=== PATIENT | male | born 1950 | race Hispanic/Latino ===

== ENCOUNTER 2020-11-07 12:04 | Inpatient (IN) | payer OTHER ==
[~2020-11-07] VITALS: Ht 172.7 cm; Wt 104.0 kg
[2020-11-07] MEDS ORDERED: 0.9%NACL 1000ML 1,000 ML IV ONE (12:25)
[2020-11-07] MEDS ORDERED: ACETAMINOPHEN 500 MG TABLET ONE (12:26)
[2020-11-07 12:56] LABS: BASOPHILS % (AUTO) 0.2 % (0.0-5.0); LYMPHOCYTES % (AUTO) 12.7 % (21.0-51.0); MEAN CORPUSCULAR HEMOGLOBIN 31.9 pg (27.0-33.0); MEAN CORPUSCULAR HGB CONC 35.3 g/dL (32.0-36.0); MEAN CORPUSCULAR VOLUME 90.5 fL (79-99); MONOCYTES % (AUTO) 6.9 % (3.0-13.0); NEUTROPHILS % (AUTO) 79.5 % (40.0-77.0); PLATELET COUNT (AUTO) 213 K/uL (130-400); RED BLOOD CELL COUNT(AUTO) 4.42 MIL/uL (4.50-6.20); RED CELL DISTRIBUTION WIDTH 12.8 % (11.0-15.5); WHITE BLOOD COUNT (AUTO) 9.6 K/uL (4.8-10.8)
[2020-11-07 13:00] LABS: ABG BASE EXCESS -3.5 mmol/L (-2.0-3.0); ABG HCO3 18.7 mmol/L (21.0-28.0); ABG OXYGEN SATURATION 93.5 % (95.0-99.0); ABG PCO2 27 mmHg (35-48)
[2020-11-07 13:07] LABS: INR 1.12 (0.85-1.15); PROTHROMBIN TIME 11.9 SEC (9.6-11.6)
[2020-11-07 13:10] LABS: CREATININE 1.2 mg/dL (0.5-1.5); POTASSIUM 3.4 mmol/L (3.5-5.1)
[2020-11-07] MEDS ORDERED: DEXAMETHASONE SOD PHOSPHATE 10MG/ML 1ML VIAL ONE (13:14)
[2020-11-07 13:15] LABS: B-TYPE NATRIURETIC PEPTIDE 579 pg/mL (0-100)
[2020-11-07 13:15] LABS: ALBUMIN 2.3 g/dL (3.5-5.0); BILIRUBIN,TOTAL 0.7 mg/dL (0.2-1.0)
[2020-11-07] MEDS ORDERED: AZITHROMYCIN 250 MG TABLET PO ONE (13:15)
[2020-11-07] MEDS ORDERED: ASPIRIN 325 MG TABLET ONE (13:15)
[2020-11-07] MEDS ORDERED: CEFTRIAXONE 1G VIAL ONE (13:15)
[2020-11-07] MEDS ORDERED: DILTIAZEM 25MG INJ IVP ONE (13:16)
[2020-11-07] MEDS ORDERED: 0.9%NACL 100ML 100 ML IV ONE (13:33)
[2020-11-07] MEDS ORDERED: DILTIAZEM 50MG VIAL IV ONE (13:35)
[2020-11-07] MEDS ORDERED: INSULIN HUMULIN 70/30 100 UNIT/ML 3ML SQ ONE (13:35)
[2020-11-07] MEDS ORDERED: ALBUTEROL INHALER 90MCG/INH IH ONE (14:21)
[2020-11-07] MEDS ORDERED: ONDANSETRON 4MG INJ IV PRN (16:15)
[2020-11-07] MEDS ORDERED: MAG/ALUM/SIMETH 30 ML UDCUP PO PRN (16:15)
[2020-11-07] MEDS ORDERED: ZOLPIDEM TARTRATE 5 MG TAB PO PRN (16:15)
[2020-11-07] MEDS ORDERED: DIPHENHYDRAMINE HCL 25 MG CAPSULE PO PRN (16:15)
[2020-11-07] MEDS ORDERED: METOPROLOL TARTRATE 1 MG/ML 5ML VIAL IV PRN (16:15)
[2020-11-07] MEDS ORDERED: NITROGLYCERIN 0.4 MG SL TAB SL PRN (16:15)
[2020-11-07] MEDS ORDERED: POTASSIUM CHLORIDE 20MEQ/100ML 100 ML IV PRN (16:15)
[2020-11-07] MEDS ORDERED: DiphenhydrAMINE HCL 50 MG/ML VIAL IV PRN (16:15)
[2020-11-07] MEDS ORDERED: DOXYCYCLINE 100MG+NS 250ML IV SCH (16:15)
[2020-11-07] MEDS ORDERED: HYDRALAZINE 20MG/ML VIAL IV PRN (16:15)
[2020-11-07] MEDS ORDERED: DILTIAZEM 25MG INJ IVP PRN (16:15)
[2020-11-07] MEDS ORDERED: ACETAMINOPHEN 325 MG TAB PO PRN ×2 (16:15)
[2020-11-07] MEDS ORDERED: MORPHINE 2 MG SYG IV PRN (16:15)
[2020-11-07] MEDS: DEXAMETHASONE SOD PHOSPHATE 4 MG/ML 1ML VIAL IVP SCH (16:15)
[2020-11-07] MEDS ORDERED: ACETAMINOPHEN WITH CODEINE 1 TAB TAB PO PRN (16:15)
[2020-11-07] MEDS ORDERED: MAGNESIUM 2GM PREMIX 50ML 50 ML IV PRN (16:15)
[2020-11-07] MEDS ORDERED: LACTULOSE 20 GM/30 ML UDCUP PO PRN (16:15)
[2020-11-07] MEDS: CEFTRIAXONE 1G VIAL IVP SCH (16:15)
[2020-11-07] MEDS ORDERED: DILTIAZEM 125 MG/25 ML INJ 125 MG in 0.9%NACL 100ML 100 ML IV PRN ×4 (16:15)
[2020-11-07] MEDS ORDERED: GUAIFENESIN-DM 200/20 MG 10 ML PO PRN (16:15)
[2020-11-07] MEDS: INSULIN HUMULIN R 100 UNIT/ML 3ML SQ SCH ×2 (16:30→21:00)
[2020-11-07] MEDS ORDERED: DOXYCYCLINE 100MG+NS 250ML 250 ML IV ONE (16:44)
[2020-11-07] MEDS ORDERED: GUAIFENESIN-DM 200/20 MG 10 ML ONE (20:48)
[2020-11-07] MEDS ORDERED: FAMOTIDINE 20MG VIAL IV ONE (20:49)
[2020-11-07] MEDS: DOXYCYCLINE 100MG+NS 250ML 250 ML IV SCH (21:00)
[2020-11-07] MEDS: FAMOTIDINE 20MG TAB PO SCH (21:00)
[2020-11-08] MEDS: CEFTRIAXONE 1G VIAL IVP SCH ×2 (04:15→16:15)
[2020-11-08 04:57] LABS: BASOPHILS % (AUTO) 0.2 % (0.0-5.0); HEMATOCRIT 41.4 % (42-54); LYMPHOCYTES % (AUTO) 10.4 % (21.0-51.0); MEAN CORPUSCULAR HEMOGLOBIN 31.5 pg (27.0-33.0); MEAN CORPUSCULAR HGB CONC 34.1 g/dL (32.0-36.0); MEAN CORPUSCULAR VOLUME 92.4 fL (79-99); MONOCYTES % (AUTO) 2.7 % (3.0-13.0); PLATELET COUNT (AUTO) 238 K/uL (130-400); RED BLOOD CELL COUNT(AUTO) 4.48 MIL/uL (4.50-6.20); RED CELL DISTRIBUTION WIDTH 12.6 % (11.0-15.5); WHITE BLOOD COUNT (AUTO) 8.8 K/uL (4.8-10.8)
[2020-11-08 05:31] LABS: ALANINE AMINOTRANSFERASE 72 U/L (12-78); ASPARTATE AMINOTRANSFERASE 50 U/L (10-37); BILIRUBIN,TOTAL 0.5 mg/dL (0.2-1.0); CARBON DIOXIDE 19 mmol/L (21-32); CHLORIDE 98 mmol/L (101-111); GLOMERULAR FILTR. RATE CALC 78 mL/min (>60); GLUCOSE,RANDOM 369 mg/dL (70-105); LACTATE DEHYDROGENASE 321 U/L (81-234); POTASSIUM 3.7 mmol/L (3.5-5.1); SODIUM SERUM 135 mmol/L (136-145); TOTAL PROTEIN, SERUM 6.5 g/dL (6.0-8.3); UREA NITROGEN, BLOOD 22 mg/dL (7-18)
[2020-11-08] MEDS ORDERED: DILTIAZEM 125 MG/25 ML INJ IV ONE ×2 (06:55→16:47)
[2020-11-08] MEDS ORDERED: 0.9%NACL 100ML 100 ML IV ONE ×2 (06:55→16:47)
[2020-11-08] MEDS: INSULIN HUMULIN R 100 UNIT/ML 3ML SQ SCH ×4 (07:30→21:00)
[2020-11-08] MEDS: DOXYCYCLINE 100MG+NS 250ML 250 ML IV SCH ×2 (09:00→21:00)
[2020-11-08] MEDS: ENOXAPARIN SODIUM 100 MG/1 ML SQ SCH ×2 (09:00→21:00)
[2020-11-08] MEDS ORDERED: ENOXAPARIN SODIUM 40 MG/0.4 ML SYRINGE SQ SCH (09:00)
[2020-11-08] MEDS: FAMOTIDINE 20MG TAB PO SCH ×2 (09:00→21:00)
[2020-11-08] MEDS ORDERED: FAMOTIDINE 20MG TAB ONE ×2 (09:16→22:16)
[2020-11-08] MEDS ORDERED: ENOXAPARIN SODIUM 100 MG/1 ML SQ ONE ×2 (09:16→22:15)
[2020-11-08] MEDS ORDERED: DOXYCYCLINE 100MG+NS 250ML 250 ML IV ONE ×2 (09:17→22:16)
[2020-11-08] MEDS ORDERED: INSULIN HUMULIN R 100 UNIT/ML 3ML ONE ×4 (09:22→22:33)
[2020-11-08] MEDS ORDERED: CEFTRIAXONE 1G VIAL ONE (14:50)
[2020-11-08] MEDS ORDERED: DEXAMETHASONE SOD PHOSPHATE 10MG/ML 1ML VIAL ONE (14:50)
[2020-11-08] MEDS ORDERED: 0.9%NACL 50ML 50 ML IV ONE (14:52)
[2020-11-08] MEDS ORDERED: IOHEXOL-350 75 ML VIAL IV ONE (15:06)
[2020-11-08] MEDS ORDERED: 0.9% NACL 250ML 250 ML IV ONE (15:55)
[2020-11-08] MEDS: DEXAMETHASONE SOD PHOSPHATE 4 MG/ML 1ML VIAL IVP SCH (16:15)
[2020-11-08] MEDS ORDERED: INSULIN GLARGINE 100 UNITS/ML 10 ML VIAL SQ SCH (21:00)
[2020-11-09] MEDS ORDERED: DILTIAZEM 125 MG/25 ML INJ IV ONE ×2 (01:54→22:17)
[2020-11-09] MEDS ORDERED: 0.9%NACL 100ML 100 ML IV ONE ×2 (01:56→22:19)
[2020-11-09] MEDS ORDERED: DILTIAZEM 50MG VIAL IV ONE (03:24)
[2020-11-09] MEDS: CEFTRIAXONE 1G VIAL IVP SCH ×2 (04:15→16:15)
[2020-11-09 04:52] LABS: ABG BASE EXCESS 0.5 mmol/L (-2.0-3.0); ABG OXYGEN SATURATION 97.8 % (95.0-99.0); ABG PCO2 36 mmHg (35-48)
[2020-11-09 05:36] LABS: BASOPHILS % (AUTO) 0.1 % (0.0-5.0); HEMATOCRIT 38.4 % (42-54); LYMPHOCYTES % (AUTO) 7.6 % (21.0-51.0); MEAN CORPUSCULAR HEMOGLOBIN 32.1 pg (27.0-33.0); MEAN CORPUSCULAR HGB CONC 35.2 g/dL (32.0-36.0); MEAN CORPUSCULAR VOLUME 91.2 fL (79-99); MONOCYTES % (AUTO) 4.6 % (3.0-13.0); NEUTROPHILS % (AUTO) 86.7 % (40.0-77.0); PLATELET COUNT (AUTO) 268 K/uL (130-400); RED BLOOD CELL COUNT(AUTO) 4.21 MIL/uL (4.50-6.20); RED CELL DISTRIBUTION WIDTH 12.9 % (11.0-15.5); WHITE BLOOD COUNT (AUTO) 13.6 K/uL (4.8-10.8)
[2020-11-09 06:09] LABS: ALBUMIN 2.3 g/dL (3.5-5.0); BILIRUBIN,TOTAL 0.4 mg/dL (0.2-1.0); CRP QUANTITATIVE 88.6 mg/L (0.00-9.0); MAGNESIUM 2.3 mg/dL (1.80-2.40); PHOSPHORUS 2.3 mg/dL (2.5-4.9); POTASSIUM 3.3 mmol/L (3.5-5.1); TOTAL PROTEIN, SERUM 6.7 g/dL (6.0-8.3)
[2020-11-09] MEDS ORDERED: INSULIN HUMULIN R 100 UNIT/ML 3ML ONE ×5 (06:36→22:55)
[2020-11-09] MEDS: INSULIN HUMULIN R 100 UNIT/ML 3ML SQ SCH ×4 (07:30→21:00)
[2020-11-09] MEDS: ENOXAPARIN SODIUM 100 MG/1 ML SQ SCH ×2 (09:00→21:00)
[2020-11-09] MEDS: FAMOTIDINE 20MG TAB PO SCH ×2 (09:00→21:00)
[2020-11-09] MEDS: DOXYCYCLINE 100MG+NS 250ML 250 ML IV SCH ×2 (09:00→21:00)
[2020-11-09] MEDS ORDERED: ENOXAPARIN SODIUM 100 MG/1 ML SQ ONE ×2 (09:02→22:54)
[2020-11-09] MEDS ORDERED: FAMOTIDINE 20MG TAB ONE (09:03)
[2020-11-09] MEDS ORDERED: DOXYCYCLINE 100MG+NS 250ML 250 ML IV ONE ×2 (09:04→22:54)
[2020-11-09] MEDS ORDERED: DEXAMETHASONE SOD PHOSPHATE 4 MG/ML 1ML VIAL ONE (15:38)
[2020-11-09] MEDS ORDERED: CEFTRIAXONE 1G VIAL ONE (15:39)
[2020-11-09] MEDS: DEXAMETHASONE SOD PHOSPHATE 4 MG/ML 1ML VIAL IVP SCH (16:15)
[2020-11-09] MEDS ORDERED: INSULIN GLARGINE 100 UNITS/ML 10 ML VIAL SQ SCH (21:00)
[2020-11-09] MEDS ORDERED: FAMOTIDINE 20MG VIAL IV ONE (22:54)
[2020-11-10] MEDS: CEFTRIAXONE 1G VIAL IVP SCH ×2 (04:15→16:15)
[2020-11-10] MEDS ORDERED: CEFTRIAXONE 1G VIAL ONE ×2 (04:57→15:10)
[2020-11-10 05:35] LABS: BASOPHILS % (AUTO) 0.2 % (0.0-5.0); HEMATOCRIT 38.4 % (42-54); MEAN CORPUSCULAR HEMOGLOBIN 31.2 pg (27.0-33.0); MEAN CORPUSCULAR HGB CONC 33.9 g/dL (32.0-36.0); MEAN CORPUSCULAR VOLUME 92.1 fL (79-99); MONOCYTES % (AUTO) 5.4 % (3.0-13.0); NEUTROPHILS % (AUTO) 85.6 % (40.0-77.0); PLATELET COUNT (AUTO) 347 K/uL (130-400); RED BLOOD CELL COUNT(AUTO) 4.17 MIL/uL (4.50-6.20); WHITE BLOOD COUNT (AUTO) 13.1 K/uL (4.8-10.8)
[2020-11-10 06:02] LABS: ALBUMIN 2.3 g/dL (3.5-5.0); BILIRUBIN,TOTAL 0.4 mg/dL (0.2-1.0); CRP QUANTITATIVE 45.6 mg/L (0.00-9.0); POTASSIUM 3.3 mmol/L (3.5-5.1); TOTAL PROTEIN, SERUM 6.5 g/dL (6.0-8.3)
[2020-11-10] MEDS: INSULIN HUMULIN R 100 UNIT/ML 3ML SQ SCH ×4 (07:30→21:00)
[2020-11-10] MEDS ORDERED: DOXYCYCLINE 100MG+NS 250ML 250 ML IV ONE ×2 (08:04→21:06)
[2020-11-10] MEDS ORDERED: ENOXAPARIN SODIUM 100 MG/1 ML SQ ONE ×2 (08:04→21:05)
[2020-11-10] MEDS ORDERED: FAMOTIDINE 20MG TAB ONE (08:04)
[2020-11-10] MEDS ORDERED: INSULIN HUMULIN R 100 UNIT/ML 3ML ONE ×5 (08:05→22:46)
[2020-11-10] MEDS ORDERED: DILTIAZEM 125 MG/25 ML INJ IV ONE (08:16)
[2020-11-10] MEDS: FAMOTIDINE 20MG TAB PO SCH ×2 (09:00→21:00)
[2020-11-10] MEDS: ENOXAPARIN SODIUM 100 MG/1 ML SQ SCH ×2 (09:00→21:00)
[2020-11-10] MEDS: DOXYCYCLINE 100MG+NS 250ML 250 ML IV SCH ×2 (09:00→21:00)
[2020-11-10] MEDS ORDERED: GUAIFENESIN-CODEINE 5 ML SYRUP ONE (14:05)
[2020-11-10] MEDS ORDERED: DEXAMETHASONE SOD PHOSPHATE 10MG/ML 1ML VIAL ONE (15:09)
[2020-11-10] MEDS: DEXAMETHASONE SOD PHOSPHATE 4 MG/ML 1ML VIAL IVP SCH (16:15)
[2020-11-10] MEDS ORDERED: METOCLOPRAMIDE 10 MG/2 ML VIAL ONE (19:26)
[2020-11-10] MEDS: INSULIN GLARGINE 100 UNITS/ML 10 ML VIAL SQ SCH (21:00)
[2020-11-10] MEDS: DILTIAZEM 60MG TAB PO SCH (21:00)
[2020-11-10] MEDS ORDERED: DILTIAZEM 60MG TAB ONE (21:06)
[2020-11-10] MEDS ORDERED: FAMOTIDINE 20MG VIAL IV ONE (21:07)
[2020-11-10] MEDS ORDERED: POTASSIUM CHLORIDE 20MEQ/100ML 100 ML IV ONE (22:30)
[2020-11-10 23:20] VITALS: BP 170/81
[2020-11-10] MEDS: LIDOCAINE HCL-MPF 1% 2ML VIAL IV PRN ×2 (23:32→23:59)
[2020-11-11] MEDS ORDERED: METO100T14 PO (00:48)
[2020-11-11] MEDS ORDERED: SITA100T12 PO (00:48)
[2020-11-11] MEDS ORDERED: ATOR40TA71 PO (00:48)
[2020-11-11] MEDS ORDERED: BENA40TA92 PO (00:48)
[2020-11-11] MEDS ORDERED: AMLO-258 PO (00:48)
[2020-11-11] MEDS ORDERED: GLIP10TA9 PO (00:48)
[2020-11-11] MEDS ORDERED: PIOG30TA70 PO (00:48)
[2020-11-11 00:51] VITALS: BP 156/78
[2020-11-11] MEDS: CEFTRIAXONE 1G VIAL IVP SCH ×2 (03:48→16:41)
[2020-11-11 04:00] VITALS: BP 135/76
[2020-11-11] MEDS: INSULIN HUMULIN R 100 UNIT/ML 3ML SQ SCH ×4 (06:02→20:29)
[2020-11-11] MEDS: ENOXAPARIN SODIUM 100 MG/1 ML SQ SCH ×2 (08:04→19:53)
[2020-11-11] MEDS: DOXYCYCLINE 100MG+NS 250ML 250 ML IV SCH ×2 (08:04→19:53)
[2020-11-11] MEDS: DILTIAZEM 60MG TAB PO SCH (08:04)
[2020-11-11] MEDS: FAMOTIDINE 20MG TAB PO SCH ×2 (08:04→19:53)
[2020-11-11 09:29] VITALS: BP_SYST 124; BP_SYST 197; BP_DIAS 67; BP_DIAS 91
[2020-11-11] MEDS ORDERED: METOPROLOL TARTRATE 50 MG TAB ONE (10:33)
[2020-11-11] MEDS: DEXAMETHASONE SOD PHOSPHATE 4 MG/ML 1ML VIAL IVP SCH (16:41)
[2020-11-11 18:41] VITALS: BP 152/96
[2020-11-11] MEDS: METOPROLOL TARTRATE 50 MG TAB PO SCH (19:57)
[2020-11-11 20:00] VITALS: BP 163/97
[2020-11-11] MEDS: INSULIN GLARGINE 100 UNITS/ML 10 ML VIAL SQ SCH (20:26)
[2020-11-12] VITALS: BP 158/95
[2020-11-12] MEDS: CEFTRIAXONE 1G VIAL IVP SCH ×2 (03:28→16:23)
[2020-11-12 03:55] LABS: ABG BASE EXCESS 1.2 mmol/L (-2.0-3.0); ABG HCO3 25.1 mmol/L (21.0-28.0); ABG OXYGEN SATURATION 97.5 % (95.0-99.0); ABG PCO2 38 mmHg (35-48)
[2020-11-12 04:00] VITALS: BP 151/101
[2020-11-12 04:15] VITALS: BP 154/89
[2020-11-12 05:06] LABS: BASOPHILS % (AUTO) 0.3 % (0.0-5.0); HEMATOCRIT 39.2 % (42-54); LYMPHOCYTES % (AUTO) 7.7 % (21.0-51.0); MEAN CORPUSCULAR HEMOGLOBIN 31.7 pg (27.0-33.0); MEAN CORPUSCULAR HGB CONC 33.9 g/dL (32.0-36.0); MEAN CORPUSCULAR VOLUME 93.3 fL (79-99); MONOCYTES % (AUTO) 4.6 % (3.0-13.0); NEUTROPHILS % (AUTO) 82.4 % (40.0-77.0); PLATELET COUNT (AUTO) 388 K/uL (130-400); RED CELL DISTRIBUTION WIDTH 12.8 % (11.0-15.5); WHITE BLOOD COUNT (AUTO) 12.1 K/uL (4.8-10.8)
[2020-11-12 05:27] LABS: ALBUMIN 2.3 g/dL (3.5-5.0); BILIRUBIN,TOTAL 0.3 mg/dL (0.2-1.0); MAGNESIUM 1.4 mg/dL (1.80-2.40); PHOSPHORUS 3.3 mg/dL (2.5-4.9); POTASSIUM 3.5 mmol/L (3.5-5.1); TOTAL PROTEIN, SERUM 6.4 g/dL (6.0-8.3)
[2020-11-12] MEDS ORDERED: KCL 20 MEQ ERTAB PO PRN (05:45)
[2020-11-12] MEDS ORDERED: POTASSIUM CHLORIDE 10% ELIXIR 20 MEQ/15 ML UDCUP PO PRN (05:45)
[2020-11-12] MEDS: INSULIN HUMULIN R 100 UNIT/ML 3ML SQ SCH ×4 (05:58→20:40)
[2020-11-12] MEDS: FAMOTIDINE 20MG TAB PO SCH ×2 (09:15→19:33)
[2020-11-12] MEDS: METOPROLOL TARTRATE 50 MG TAB PO SCH ×2 (09:15→19:33)
[2020-11-12] MEDS: DOXYCYCLINE 100MG+NS 250ML 250 ML IV SCH ×2 (09:16→20:40)
[2020-11-12] MEDS: ENOXAPARIN SODIUM 100 MG/1 ML SQ SCH ×2 (09:16→20:40)
[2020-11-12 12:01] VITALS: BP 159/108
[2020-11-12 16:00] VITALS: BP 164/90
[2020-11-12] MEDS ORDERED: DEXA6TAB PO (16:01)
[2020-11-12] MEDS: DEXAMETHASONE SOD PHOSPHATE 4 MG/ML 1ML VIAL IVP SCH (16:24)
[2020-11-12 19:52] VITALS: BP 148/82
[2020-11-12] MEDS: INSULIN GLARGINE 100 UNITS/ML 10 ML VIAL SQ SCH (20:40)
== END 2020-11-12 15:00 | disposition home or self-care (01) | DRG 177 ==
LOC: EDH 12:04 → EDHIP 16:02 → 4BH 11-10 22:25
PROVIDERS: ADMIT Internal Medicine; ATTEND Internal Medicine
PROC: XW13325 Transfusion of Convalescent Plasma (Nonautologous) into Peripheral Vein, Percutaneous Approach, New Technology Group 5 (ICD-10-PCS; principal; 2020-11-08)
DX: U07.1 COVID-19 (principal); J12.9 Viral pneumonia, unspecified; I48.92 Unspecified atrial flutter; I48.91 Unspecified atrial fibrillation; E66.9 Obesity, unspecified; E11.9 Type 2 diabetes mellitus without complications; E78.5 Hyperlipidemia, unspecified; R19.7 Diarrhea, unspecified; I10 Essential (primary) hypertension; Z79.84 Long term (current) use of oral hypoglycemic drugs; Z68.34 Body mass index [BMI] 34.0-34.9, adult; Z79.899 Other long term (current) drug therapy
CPT/HCPCS: 36415; 36600; 71045; 71275; 80053; 82550; 82728; 82803; 82948; 83605; 83615; 83735; 83880; 84100; 84145; 84484; 85025; 85378; 85610; 85730; 86140; 86850; 86900; 86901; 86927; 87040; 87426; 87804; 87880; 93005; 93970; 94760; 99291; G0378; J0696; J1100; J1650; J1815; J2765; J3475; J3480; J3490; J7030; J7050; Q9967